=== PATIENT | female | born 1980 | race Caucasian/White ===

== ENCOUNTER → 2021-04-22 09:09 | Outpatient (CLI) | payer OTHER, SELFPAY ==
--- NOTE | 2021-04-22 09:13 | DI.ECHO.S_ITS ---
[facility]---------+ [facility] +---------+ : : [address] : [address] : : : : [id number] : : : : Phone: [phone]+ Echocardiogram Report + + :Name: RADHA TOBIN Study Date: 04/22/2021 Height: 59 in : :[facility] ReadingLocation: Weight: 200 lb : : Gender: Female BSA: 1.8 m2 : :: 1980 Age: 40 yrs BP: 149/90 mmHg: :Reason For Study: TURNERS SYNDROM : :Ordering Physician: BRIEN, : :MADHU Performed By: Mirian Greene : :Referring: MADHU TESFAYE : + + Interpretation Summary The left ventricle is normal in size and wall thickness. Left ventricular systolic function appears normal without focal wall motion abnormalities. The ejection fraction is estimated to be 60-65%. Diastolic parameters suggest probable normal left ventricular diastolic function and normal filling pressures. The right ventricle is normal in size and function. Both atria are normal in size. The aortic valve is not well visualized but appears trileaflet. History of trileaflet valve in 2017. The aortic root is normal size. Cannot exclude large mobile plaque in aortic arch. I suspect this is an artifact but would recommend CT chest angiogram to further delineate aortic arch. Procedure: A two-dimensional transthoracic echocardiogram with color flow and Doppler was performed. The study quality was technically adequate. Comparison is made with the echocardiogram of 08/30/2017. The patient was in sinus rhythm with heart rates between 83-90 bpm during the exam. Left Ventricle: The left ventricle is normal in size and wall thickness. Left ventricular systolic function appears normal without focal wall motion abnormalities. The ejection fraction is estimated to be 60-65%. Diastolic parameters suggest probable normal left ventricular diastolic function and normal filling pressures. Right Ventricle: The right ventricle is normal in size and function. Atria: Both atria are normal in size. There is no Doppler evidence for an interatrial shunt. Mitral Valve: The mitral valve is normal in structure and function. There is trace mitral regurgitation. Aortic Valve: The aortic valve opens well. The aortic valve is not well visualized but appears trileaflet. History of trileaflet valve in 2017. There is no aortic valve stenosis. No aortic regurgitation is present. Tricuspid Valve: The tricuspid valve is normal in structure and function. There is mild tricuspid regurgitation. Pulmonic Valve: The pulmonic valve leaflets are thin and pliable; valve motion is normal. There is trace pulmonic regurgitation. Great Vessels: The aortic root is normal size. The ascending aorta is at the upper limits of normal in size. The IVC is of normal diameter and collapses greater than 50% with a sniff. This suggests a low right atrial pressure of 3 mm Hg. Pericardium/ Pleura There is no pericardial effusion. There is no pleural effusion. MMode/2D Measurements & Calculations LVIDd: 4.2 cm LVOT diam: 2.0 cm LVIDs: 3.0 cm Ao root diam: 3.1 cm FS: 28.3 % asc Aorta Diam: 3.4 cm IVSd: 0.84 cm Ao Arch Diam (Prox Trans): 2.7 cm LVPWd: 1.0 cm LV kamara. diameter/BSA (cm/m^2): 2.3 LV sys. diameter/BSA (cm/m^2): 1.6 LA A2 area: 18.6 cm2 RA long axis: 4.0 cm LA A4 area: 11.8 cm2 RA area: 9.7 cm2 LA length (vol): 4.5 cm RA vol: 20.0 ml LA vol: 41.1 ml RA : 10.9 ml/m2 LA vol index: 22.3 ml/m2 IVC diam: 1.9 cm RVD1 (basal): 2.9 cm TAPSE: 1.8 cm Doppler Measurements & Calculations Ao V2 max: 121.5 cm/sec LVOT Max Aaron: 86.8 cm/sec Ao V2 mean: 83.9 cm/sec LV V1 max P.0 mmHg Ao max P.9 mmHg LV V1 VTI: 19.8 cm Ao mean P.2 mmHg MAXIMO(I,D): 2.7 cm2 Ao V2 VTI: 23.2 cm MAXIMO(V,D): 2.3 cm2 sev ratio: 0.85 MAXIMO indexed to BSA (cm^2/m^2): 1.5 MV E max aaron: 94.4 cm/sec PA V2 max: 106.0 cm/sec MV A max aaron: 78.0 cm/sec PA V2 mean: 76.4 cm/sec MV E/A: 1.2 PA mean P.6 mmHg Med Peak E' Aaron: 7.0 cm/sec PA pr(Accel): 61.9 mmHg E/E' med: 13.4 Lat Peak E' Aaron: 10.4 cm/sec E/E' lat: 9.1 E/e' average: 11.2 MV dec time: 0.22 sec SV(LVOT): 63.4 ml Reading Physician:04:51 PM
== END ==
PROVIDERS: PCP Internal Medicine; Referring Provider Internal Medicine; Visit Provider Internal Medicine
DX: Q96.9 Turner's syndrome, unspecified (principal)
CPT/HCPCS: 93306